=== PATIENT | male | born 1995 | race African-American/Black ===

== ENCOUNTER 2021-10-13 08:11 | Outpatient (REF) | payer OTHER, SELFPAY ==
--- NOTE | ~2021-10-13 | MR_ITS ---
EXAMINATION: MR BRAIN WITHOUT AND WITH CONTRAST CLINICAL INFORMATION: Spastic bladder. COMPARISON: None available. TECHNIQUE: Multiplanar, multisequence imaging of the brain was performed before and after the intravenous administration of 10 mL of Gadavist. FINDINGS: There is no acute infarction, mass, hemorrhage, or extra-axial collection. No abnormal or unexpected intracranial enhancement is seen. The ventricles, sulci, and basilar cisterns are normal in size and configuration. A few minimal nonspecific foci of T2/FLAIR hyperintensity are seen in the cerebral white matter. The flow voids of the major intracranial arteries appear intact. The bones and extracranial soft tissues are within normal limits. There is mild paranasal sinus mucosal thickening. The orbital contents are unremarkable. MR/MR head/brain wo/w con IMPRESSION: No mass lesion, acute infarction, or abnormal intracranial enhancement.
== END 2021-10-13 08:12 | disposition home or self-care (01) ==
LOC: HO.MRI 08:11
PROVIDERS: Visit Provider Psychiatry & Neurology Neurology
DX: N32.89 Other specified disorders of bladder (principal)
CPT/HCPCS: 70553; A9585

== ENCOUNTER 2021-11-03 18:46 | Outpatient (REF) | payer OTHER, SELFPAY ==
--- NOTE | ~2021-11-03 | MR_ITS ---
EXAMINATION: MR THORACIC SPINE WITHOUT AND WITH CONTRAST CLINICAL INFORMATION: 26-year-old undergoing evaluation for spastic neurogenic bladder. Possible MS. COMPARISON: None TECHNIQUE: MRI of the thoracic spine was obtained using routine sequences with and without contrast. Intravenous contrast: Gadavist 10 mL. FINDINGS: ALIGNMENT: The thoracic spine is anatomically aligned. VERTEBRAL BODIES AND BONE MARROW: Vertebral body heights are well-maintained. Bone marrow signal intensity appears within normal limits. No abnormal bone marrow enhancement. DISC SPACES AND ENDPLATES: Iwel-tt-[id number] intervertebral disc space height loss at T3-T4 with mild disc desiccation consistent with disc degenerative change. Similar findings at T4-T5. Mild disc space height loss also noted at T5-T6. Otherwise intervertebral disc space heights and signal are well maintained throughout the thoracic spine. No significant spondylosis. Endplates appear intact. PARASPINAL SOFT TISSUES: There is a 7 mm cystic structure adjacent to the left T4 costotransverse joint, within the left paravertebral fat which is a nonspecific finding and may reflect a synovial cyst related to the joint space or possibly some other benign cystic structure. Otherwise, the paravertebral soft tissues appear unremarkable. SPINAL CORD: The thoracic spinal cord is normal in morphology, caliber and signal intensity, without focal lesion or abnormal enhancement. The conus terminates at the T12-L1 level. There is no abnormal leptomeningeal enhancement. SPINAL LEVELS: T1-T2: See accompanying MRI of the cervical spine. T2-T3: Small right paramedian disc protrusion with mild indentation of the ventral thecal sac on the right without cord impingement or canal stenosis. No significant DJD or neuroforaminal stenosis. Unremarkable between T3-T4 and T8-T9 inclusive with no disc herniations and no significant DJD, canal or neuroforaminal stenosis. T9-T10: Mild facet arthropathy noted on the left, with a 3 mm synovial cyst arising along the anteroinferior margin of the left facet joint without neural impingement. T10-T11: Npxg-ye-bufvcwwt bilateral facet arthropathy noted without significant canal or neuroforaminal stenosis. T11-T12: Unremarkable. T12-L1: Unremarkable. MR/MR thoracic spine wo/w con IMPRESSION: 1. Normal appearance to the thoracic spinal cord. No spinal cord lesions or abnormal enhancement. No evidence for MS. 2. Small right paramedian disc protrusion at T2-T3 without cord impingement. 3. Mild facet arthropathy on the left at T9-T10 with a tiny synovial cyst and [id number] bilateral facet arthropathy at T10-T11. No significant thoracic spinal canal or neuroforaminal stenosis. 4. A 7 mm cystic structure within the left paravertebral fat adjacent to the left T4 costotransverse joint. Etiology uncertain. Possible synovial cyst or other benign cystic structure.
--- NOTE | ~2021-11-03 | MR_ITS ---
EXAMINATION: MR CERVICAL SPINE WITHOUT AND WITH CONTRAST CLINICAL INFORMATION: 26-year-old with spastic, neurogenic bladder and nonspecific T2 hyperintensities in the cerebral white matter, possible changes of MS. COMPARISON: None TECHNIQUE: MRI of the cervical spine was obtained using routine sequences with and without contrast. Intravenous contrast: Gadavist 10 mL. FINDINGS: ALIGNMENT: There is lordotic loss, with straightening of the cervical spine. No spondylolisthesis or retrolisthesis. CRANIOCERVICAL JUNCTION/C1-C2 ARTICULATIONS: Intact and aligned. VISUALIZED INTRACRANIAL STRUCTURES: Within normal limits. VERTEBRAL BODIES: Normal height. DISC SPACES AND ENDPLATES: The intervertebral disc space heights are well-maintained. No significant spondylosis. Endplates appear intact. BONE MARROW: No significant marrow-replacing process or bone marrow edema. No abnormal bone marrow enhancement. C2-C3: No disc herniation and no significant DJD, canal or neural foraminal stenosis. C3-C4: No disc herniation and no significant DJD, canal or neural foraminal stenosis. C4-C5: No disc herniation and no significant DJD, canal or neural foraminal stenosis. C5-C6: Mild broad-based central to left paramedian disc protrusion with mild flattening of the dural sac asymmetric to the left without cord impingement. No significant spinal canal stenosis. No significant DJD or neural foraminal stenosis. C6-C7: Very small left and right paramedian disc protrusions, with no significant thecal sac encroachment or canal stenosis. No significant DJD or neural foraminal stenosis. C7-T1: Tiny central disc protrusion with minimal indentation of the ventral thecal sac without cord impingement or canal stenosis. No significant DJD or neural foraminal stenosis. T1-T2: Tiny inferior left foraminal disc protrusion without neural impingement. No significant DJD, canal or neural foraminal stenosis.. The cervical and visualized upper thoracic spinal cord is normal in morphology, caliber and signal intensity without focal lesion or abnormal enhancement. There is no abnormal leptomeningeal or intradural enhancement. VISUALIZED SOFT TISSUE NECK STRUCTURES: Limited assessment. Mildly prominent enhancing soft tissue in the central aspect of the posterior nasopharynx, likely reactive adenoidal soft tissue. MR/MR cervical spine wo/w con IMPRESSION: 1. Straightening of the cervical spine which is nonspecific. 2. Normal appearance to the spinal cord. No spinal cord lesions or abnormal enhancement. No evidence for MS. 3. Mild central to left paramedian disc protrusion at C5-C6, small left and right paramedian disc protrusions at C6-C7 and small central disc protrusion C7-T1 without spinal cord impingement or spinal canal stenosis. 4. No significant DJD and no significant neural foraminal stenosis. 5. Probable mild reactive adenoidal soft tissue in the posterior nasopharynx.
== END 2021-11-03 18:47 | disposition home or self-care (01) ==
LOC: HO.MRI 18:46
PROVIDERS: Visit Provider Psychiatry & Neurology Neurology
DX: N32.89 Other specified disorders of bladder (principal); N31.9 Neuromuscular dysfunction of bladder, unspecified; G37.9 Demyelinating disease of central nervous system, unspecified
CPT/HCPCS: 72156; 72157; A9585

== ENCOUNTER 2022-03-28 22:27 | Emergency (ER) | payer OTHER, SELFPAY ==
[2022-03-28 23:12] VITALS: BP 120/92; PULSE 106; RESP 18; TEMP 38.5; O2SAT 99; BMI 33.6
[2022-03-28 23:30] LABS: MANUAL DIFF FLAG NO
[2022-03-28 23:37] LABS: Basophils Percent Auto 0.2 % (0-2); Eosinophils Absolute Auto 0.1 X10*3/uL (0.0-0.4); Eosinophils Percent Auto 0.7 % (0-4); Hematocrit 46.9 % (42.0-52.0); Hemoglobin 16.3 g/dl (14.0-18.0); Imm Gran Abs Auto 0.02 X10*3/uL (0.00-0.03); Imm Gran Pct Auto 0.2 % (0.0-0.4); Lymphocytes Absolute Auto 0.8 X10*3/uL (1.2-4.9); Lymphocytes Percent Auto 7.7 % (20-40); Mean Corpuscular HGB Conc 34.8 g/dl (31.0-36.0); Mean Corpuscular Hemoglobin 30.7 pg (27.0-33.0); Mean Corpuscular Volume 88.3 fL (80.0-98.0); Mean Platelet Volume 10.4 fL (9.4-12.4); Monocytes Absolute Auto 0.7 X10*3/uL (0.1-1.2); Monocytes Percent Auto 6.3 % (2-11); Neutrophils Absolute Auto 8.8 x10*3/uL (2.0-8.3); Neutrophils Percent Auto 84.9 % (45-73); Platelet Count 266 X10*3/uL (160-400); Red Blood Count 5.31 X10*6/uL (4.60-5.80); Red Cell Distribution Width 11.7 % (11.0-16.0); White Blood Count 10.4 X10*3/uL (4.8-10.8)
[2022-03-28 23:51] LABS: Alanine Aminotransferase 19 U/L (0-40); Albumin Level 4.7 g/dL (3.5-5.0); Alkaline Phosphatase 90 U/L (39-117); Anion Gap 16 (12-20); Aspartate Amino Transferase 19 U/L (5-37); Bilirubin Total 0.8 mg/dL (0.0-1.0); Blood Urea Nitrogen 13 mg/dL (9-16); Calcium 9.3 mg/dL (8.4-10.2); Carbon Dioxide 22 mmol/L (22-29); Chloride 103 mmol/L (96-108); Creatinine Clr Calc Pharmacy 125.1; Estimated Glomerular Filt Rate > 60; Glucose Random 97 mg/dL (60-115); Potassium 4.1 mmol/L (3.3-5.1); Sodium 137 mmol/L (135-145); Total Protein 7.8 g/dL (6.5-8.0)
[2022-03-28 23:53] LABS: COVID-19 Test Negative (Negative); IDNOW Serial# 55D5AD1C
[2022-03-28] MEDS: Acetaminophen 325 MG TABLET 650 MG PO (23:54)
--- NOTE | 2022-03-29 01:46 | ED_ITS ---
HPI - General Adult General Chief complaint: Abdominal Pain Stated complaint: drank a moldy [employer]. Nausea, migrains Time Seen by Provider: 03/28/22 23:47 Source: patient Mode of arrival: ambulatory Limitations: no limitations History of Present Illness HPI narrative: Patient otherwise healthy drank moldy [employer] drink yesterday since then having nausea having watery diarrhea with body aches noticed to have temperature of 101.3 f complaining of diffuse abdominal cramps no cough no running nose no other family member sick patient had shrimps yesterday Related Data Allergies Allergy/AdvReac Type Severity Reaction Status Date / Time No Known Allergies Allergy Verified 03/28/22 23:20 Review of Systems Review of Systems: Yes all other systems are reviewed and are negative PMFSH Social History Social History Advance Directives: No Advance Directives Information Provided: No Physical Exam ED Vital Signs: Vital Signs - 24 hr 03/28/22 23:12 03/29/22 04:36 Temperature 101.3 F H 99.0 F Pulse Rate 106 H 97 Respiratory Rate 18 16 Blood Pressure 120/92 H 130/69 Pulse Oximetry 99 99 Oxygen Delivery Method Room Air Room Air BMI result Body Mass Index 33.6 Appearance: Alert. Oriented X3. No acute distress. Eyes: No pallor or icterus ENT: Pharynx normal. Oral Mucosa moist Neck: Normal inspection. Neck supple. CVS: Normal heart rate and rhythm. Pulses normal. Respiratory: No respiratory distress. Equal air entry bilateral, no wheezing/rales/rhonchi Abdomen: Soft diffuse tenderness no rebound tenderness or guarding, Bowel sounds are present, no mass palpable, no CVA tenderness Skin: Skin warm and dry. Normal skin color. Normal skin turgor. Extremities: No lower extremity edema. No calf tenderness Neuro: Oriented X 3. No motor deficit. Medical Decision Making MDM Narrative Medical decision making narrative: Patient feeling better after IV fluids likely viral / food poisoning discharge patient home Lab Data Lab results reviewed: Yes I reviewed the patient's lab results. Result diagrams: 03/28/22 23:24 03/28/22 23:24 Labs: Lab Results 03/28/22 03/28/22 03/28/22 Range/Units 23:24 23:24 23:24 WBC 10.4 (4.8-10.8) X10*3/uL RBC 5.31 (4.60-5.80) X10*6/uL Hgb 16.3 (14.0-18.0) g/dl Hct 46.9 (42.0-52.0) % MCV 88.3 (80.0-98.0) fL MCH 30.7 (27.0-33.0) pg MCHC 34.8 (31.0-36.0) g/dl RDW 11.7 (11.0-16.0) % Plt Count 266 (160-400) X10*3/uL MPV 10.4 (9.4-12.4) fL Immature Gran % (Auto) 0.2 (0.0-0.4) % Neut % (Auto) 84.9 H (45-73) % Lymph % (Auto) 7.7 L (20-40) % [place] % (Auto) 6.3 (2-11) % Eos % (Auto) 0.7 (0-4) % Baso % (Auto) 0.2 (0-2) % Lymph # (Auto) 0.8 L (1.2-4.9) X10*3/uL [place] # (Auto) 0.7 (0.1-1.2) X10*3/uL Eos # (Auto) 0.1 (0.0-0.4) X10*3/uL Baso # (Auto) 0.0 (0.0-0.2) X10*3/uL Abs Immat Gran (auto) 0.02 (0.00-0.03) X10*3/uL Absolute Neuts (auto) 8.8 H (2.0-8.3) x10*3/uL Absolute Nucleated RBC 0.000 (0.0-0.012) X10*3/uL Nucleated RBC % (auto) 0.0 (0.0-0.2) /100WBC Sodium 137 (135-145) mmol/L Potassium 4.1 (3.3-5.1) mmol/L Chloride 103 (96-108) mmol/L Carbon Dioxide 22 (22-29) mmol/L Anion Gap 16 (12-20) BUN 13 (9-16) mg/dL Creatinine 1.06 (0.5-1.4) mg/dL Estim Creat Clear Calc 125.1 Estimated GFR > 60 Random Glucose 97 (60-115) mg/dL Calcium 9.3 (8.4-10.2) mg/dL Total Bilirubin 0.8 (0.0-1.0) mg/dL AST 19 (5-37) U/L ALT 19 (0-40) U/L Alkaline Phosphatase 90 (39-117) U/L Total Protein 7.8 (6.5-8.0) g/dL Albumin 4.7 (3.5-5.0) g/dL COVID-19 ([facility]) Negative (Negative) COVID-19 Clin Com See Note Influenza Type A (PCR) (Negative) Influenza Type B (PCR) (Negative) RSV RNA Qual (PCR) (Negative) SARS-CoV-2 RNA (RT-PCR) (Negative) 03/29/22 Range/Units 02:31 WBC (4.8-10.8) X10*3/uL RBC (4.60-5.80) X10*6/uL Hgb (14.0-18.0) g/dl Hct (42.0-52.0) % MCV (80.0-98.0) fL MCH (27.0-33.0) pg MCHC (31.0-36.0) g/dl RDW (11.0-16.0) % Plt Count (160-400) X10*3/uL MPV (9.4-12.4) fL Immature Gran % (Auto) (0.0-0.4) % Neut % (Auto) (45-73) % Lymph % (Auto) (20-40) % [place] % (Auto) (2-11) % Eos % (Auto) (0-4) % Baso % (Auto) (0-2) % Lymph # (Auto) (1.2-4.9) X10*3/uL [place] # (Auto) (0.1-1.2) X10*3/uL Eos # (Auto) (0.0-0.4) X10*3/uL Baso # (Auto) (0.0-0.2) X10*3/uL Abs Immat Gran (auto) (0.00-0.03) X10*3/uL Absolute Neuts (auto) (2.0-8.3) x10*3/uL Absolute Nucleated RBC (0.0-0.012) X10*3/uL Nucleated RBC % (auto) (0.0-0.2) /100WBC Sodium (135-145) mmol/L Potassium (3.3-5.1) mmol/L Chloride (96-108) mmol/L Carbon Dioxide (22-29) mmol/L Anion Gap (12-20) BUN (9-16) mg/dL Creatinine (0.5-1.4) mg/dL Estim Creat Clear Calc Estimated GFR Random Glucose (60-115) mg/dL Calcium (8.4-10.2) mg/dL Total Bilirubin (0.0-1.0) mg/dL AST (5-37) U/L ALT (0-40) U/L Alkaline Phosphatase (39-117) U/L Total Protein (6.5-8.0) g/dL Albumin (3.5-5.0) g/dL COVID-19 ([facility]) (Negative) COVID-19 Clin Com Influenza Type A (PCR) NEGATIVE (Negative) Influenza Type B (PCR) NEGATIVE (Negative) RSV RNA Qual (PCR) NEGATIVE (Negative) SARS-CoV-2 RNA (RT-PCR) NEGATIVE (Negative) Discharge Plan Discharge Clinical Impression: Gastroenteritis Patient Disposition: Home, Self-Care Instructions: Gastroenteritis (ED) Additional Instructions: Drink plenty of fluids Imodium for severe diarrhea as advised Interventions: ED Discharge Assessment Last Done: 03/29/22 04:56 Discharge Date/Time: 03/29/22 04:56
[2022-03-29] MEDS: Dicyclomine HCl 10 MG CAPSULE 20 MG PO (02:32)
[2022-03-29] MEDS: 0.9 % Sodium Chloride 1,000 ML 999 ML IV (02:33)
[2022-03-29] MEDS: Ketorolac Tromethamine 30 MG/ML VIAL IVPUSH (02:33)
[2022-03-29 03:20] LABS: Influenza A PCR NEGATIVE (Negative); Influenza B PCR NEGATIVE (Negative); Resp Syncy Virus RNA Qual PCR NEGATIVE (Negative); SARS COV2 PCR INHOUSE NEGATIVE (Negative)
[2022-03-29 04:36] VITALS: BP 130/69; PULSE 97; RESP 16; TEMP 37.2; O2SAT 99
== END 2022-03-29 04:56 | disposition home or self-care (01) ==
PROVIDERS: Emergency Provider Internal Medicine; PCP Internal Medicine
DX: K52.9 Noninfective gastroenteritis and colitis, unspecified (principal); R10.9 Unspecified abdominal pain; R50.9 Fever, unspecified; Z20.822 Contact with and (suspected) exposure to COVID-19; Z79.899 Other long term (current) drug therapy
CPT/HCPCS: 0241U; 36415; 80053; 85025; 87635; 96361; 96374; 99284; J1885